=== PATIENT | male | born 1985 | race Caucasian/White ===

== ENCOUNTER 2022-09-08 15:29 | Emergency (ER) | payer OTHER, BC ==
[~2022-09-08] VITALS: Ht 180.3 cm; Wt 104.3 kg
[2022-09-09 08:09] LABS: HCV ANTIBODY <0.1 (0.0-0.9); HIV AB/P24 AG SCREEN Non Reactive (Non Reactive)
== END 2022-09-08 19:45 | disposition home or self-care (01) ==
LOC: ER 15:29
PROVIDERS: Physician Assistant
DX: T75.89XA Other specified effects of external causes, initial encounter (principal); W46.0XXA Contact with hypodermic needle, initial encounter
CPT/HCPCS: 36415; 84460; 86317; 86803; 87389

== ENCOUNTER → 2022-10-22 | Outpatient (CLI) | payer OTHER, BC ==
[2022-10-23 09:11] LABS: HBSAG SCREEN Negative (Negative); HCV ANTIBODY <0.1 (0.0-0.9); HIV AB/P24 AG SCREEN Non Reactive (Non Reactive)
== END | disposition home or self-care (01) ==
LOC: LAB SHORT 15:12
PROVIDERS: Chiropractor
DX: Z20.9 Contact with and (suspected) exposure to unspecified communicable disease (principal)
CPT/HCPCS: 84460; 86317; 86803; 87340; 87389